=== PATIENT | male | born 1965 | race Caucasian/White ===

== ENCOUNTER 2022-10-02 20:39 | Emergency (ER) | payer OTHER ==
[~2022-10-02] VITALS: Ht 170.2 cm; Wt 104.3 kg
[2022-10-02 20:46] VITALS: BP 154/91
== END 2022-10-02 23:51 | disposition home or self-care (01) ==
LOC: ER 20:39
DX: U07.1 COVID-19 (principal)
CPT/HCPCS: 87081; 87430; 96372; 99282; J1885